=== PATIENT | male | born 1955 ===

== ENCOUNTER 2025-04-24 12:24 | Outpatient (CLI) | payer MEDICAID, SELFPAY ==
[2025-04-24 10:38] LABS: HCT 39.1 % (40.0-50.0); HGB 13.4 g/dL (13.5-17.5); MCH 33.8 pg (27.0-33.0); MCHC 34.3 % (32.0-36.0); MCV 99 fL (80-95); MPV 8.9 fL (8.0-11.0); Platelet Count 242 10^3/uL (130-400); RBC 3.97 10^6/uL (4.36-5.78); RDW 12.1 % (11.8-14.1); RDW-SD 44.4 fL; WBC 7.24 10^3/uL (4.4-10.8)
[2025-04-24 10:54] LABS: ALT 26 U/L (10-49); AST 23 U/L (<34); Albumin 5.1 g/dL (3.4-5.0); Alkaline Phosphatase 35 U/L (46-116); Anion Gap 8.1 mmol/L (3-11); BUN 15 mg/dL (9-23); Bilirubin, Total 0.60 mg/dL (0.2-1.2); CO2 26.9 mmol/L (20.0-31.0); Calcium 9.4 mg/dL (8.3-10.6); Chloride 105 mmol/L (98-107); Glucose 96 mg/dL (74-106); Potassium 4.0 mmol/L (3.5-5.1); Sodium 140 mmol/L (136-145); Total Protein 8.2 g/dL (5.7-8.2)
== END 2025-04-24 12:25 | disposition home or self-care (01) ==
LOC: LBO 12:26
PROVIDERS: PCP Radiology Radiation Oncology; Visit Provider Radiology Radiation Oncology
DX: C61 Malignant neoplasm of prostate (principal)
CPT/HCPCS: 36415; 80053; 84153; 84403; 85027